=== PATIENT | male | born 1960 | race Native Hawaiian/Other Pacific Islander ===

== ENCOUNTER 2017-09-09 14:34 | Outpatient (CLI) | payer OTHER ==
[~2017-09-09 14:34] MED LIST: AMLO10TA PO; AMLO5TAB PO; ASA LOW DOSE81 MG PO; METO10TA26 PO; METO50TA27 PO; PRAVACHOL20 MG; PRILOSEC20 MG PO; TRAM50TA PO; [UNRECOGNIZED DRUG - CODE] PO
== END 2017-09-09 19:52 | disposition home or self-care (01) ==
LOC: RAD 14:34
DX: R10.12 Left upper quadrant pain (principal)

== ENCOUNTER 2022-01-05 13:29 | Outpatient (CLI) | payer OTHER | END 2022-01-05 19:06 | disposition home or self-care (01) | LOC: RAD 13:29 | PROVIDERS: ATTEND Nurse Practitioner Family | DX: M25.532 Pain in left wrist (principal) ==